=== PATIENT | male | born 2000 | race Hispanic/Latino ===

== ENCOUNTER 2022-02-17 14:00 | Emergency (ER) | payer SELFPAY ==
[~2022-02-17] VITALS: Ht 180.3 cm; Wt 127.2 kg
[2022-02-17] VITALS (10 sets, daily range): BP systolic 108–135; BP diastolic 53–85
[~2022-02-17 14:00] MED LIST: ALBUTEROL2.5 MG/3 M IN; BACTRIM DS1 TAB OR; CEFPROZIL500 MG OR; CLORTIMAZOLE EX; CODEINE/GUAIFEN1 SOL PO; MEDDOSEPAK OR; MEDDOSEPAK PO; MOTRIN400 MG OR; NO CURRENT MEDS; NO HOME MEDS; PROAIR HFA IN; QVAR40 MCG IN; ROBITUSSIN200 MG/10 PO; SULFACET SOD10 % OS; ZITHROMAX250 MG OR; ZITHROMAX500 MG OR; ZPAK PO
[2022-02-17 14:38] LABS: BASO% 0.2 % (0-3); EOS% 2.3 % (0-8); IMMATURE GRANULOCYTES 0.1 % (0.0-5.0); LYMPH% 16.7 % (15-41); MEAN CORPUSCULAR HGB 29.7 pG CALC (26.0-32.0); MEAN CORPUSCULAR HGB CONC 35.2 g/dL CAL (32.0-36.0); MONO% 7.3 % (2-13); NEUT# 7.05 thou/uL (1.82-7.42); NEUT% 73.4 % (42-76); RED BLOOD COUNT 5.86 mill/uL (4.70-6.10); RED CELL DISTRI WIDTH 12.3 % (11.5-15.5)
[2022-02-17 14:40] LABS: HEMATOCRIT 49.5 % (39.0-50.0); HEMOGLOBIN 17.4 g/dl (14.0-18.0); MEAN CELL VOLUME 84.5 fL CALC (80.0-100.0)
[2022-02-17 15:19] LABS: ALBUMIN 4.9 g/dL (3.2-5.0); ALKALINE PHOSPHATASE 60 u/l (38-126); ANION GAP 14 (6-22 (CALC)); BILIRUBIN, TOTAL 0.9 mg/dL (0.0-1.4); BUN 12 mg/dL (9-20); BUN/CREATININE RATIO 12 (12-20 (CALC)); CARBON DIOXIDE 27 mmol/l (22-30); CHLORIDE 102 mmol/l (95-108); CREATININE 0.9 mg/dL (0.7-1.3); GFR FOR AFR.AMER. > 60 ML/MIN (>=60 (CALC)); GFR OTHER RACES > 60 ML/MIN (>=60 (CALC)); POTASSIUM 3.6 mmol/l (3.5-5.1); SGOT/AST 42 u/l (17-59); SODIUM 140 mmol/l (137-146); TOTAL PROTEIN 8.3 g/dL (6.3-8.2)
== END 2022-02-17 18:21 | disposition home or self-care (01) | DRG 313 ==
LOC: ED 14:00
PROVIDERS: Family Medicine
DX: R07.9 Chest pain, unspecified (principal)